=== PATIENT | female | born 1965 | race Caucasian/White ===

== ENCOUNTER 2020-01-07 09:57 | Emergency (ER) | payer BC, OTHER ==
[2020-01-07 11:22] LABS: ABSOLUTE BASOPHILS # (AUTO) 0.1 10^3/uL (0.0-0.2); ABSOLUTE MONOCYTES (AUTO) 1.1 10^3/uL (0.1-1.4); ABSOLUTE NEUT (AUTO) 13.2 10^3/uL (1.7-8.2); BASOPHILS % (AUTO) 0.6 % (0-2); HEMATOCRIT 44.4 % (36.0-47.0); HEMOGLOBIN 15.1 g/dL (12.0-15.5); LYMPHOCYTES % (AUTO) 6.6 % (13-45); MEAN CORPUSCULAR HEMOGLOBIN 29.2 pg (27.0-33.4); MEAN CORPUSCULAR HGB CONC 34.1 g/dL (32.0-36.0); MEAN CORPUSCULAR VOLUME 86 fl (80-97); MONOCYTES % (AUTO) 7.3 % (3-13); PLATELET COUNT 308 10^3/uL (150-450); RED BLOOD COUNT 5.19 10^6/uL (3.72-5.28); RED CELL DISTRIBUTION WIDTH 13.6 % (11.5-14.0); SEGMENTED NEUTROPHILS % (AUTO) 85.5 % (42-78); TOTAL CELLS COUNTED % (AUTO) 100 %; WHITE BLOOD COUNT 15.4 10^3/uL (4.0-10.5)
[2020-01-07 11:23] VITALS: BP 145/62
[2020-01-07 11:44] LABS: ANION GAP 9 (5-19); BLOOD UREA NITROGEN 14 mg/dL (7-20); CALCIUM 9.2 mg/dL (8.4-10.2); CARBON DIOXIDE 30 mmol/L (22-30); CHLORIDE 100 mmol/L (98-107); GLUCOSE 155 mg/dL (75-110); POTASSIUM 4.6 mmol/L (3.6-5.0)
[2020-01-07 11:54] LABS: A TYPE INFLUENZA AG NEGATIVE (NEGATIVE); B INFLUENZA AG NEGATIVE (NEGATIVE)
--- NOTE | 2020-01-07 12:05 | RADIOLOGY REPORT (SQ) ---
EXAM DESCRIPTION: CHEST 2 VIEWS COMPLETED DATE/TIME: 01/07/2020 11:39 am REASON FOR STUDY: cough; 18. Cough since . COMPARISON: Chest x-ray 04/28/2014 EXAM PARAMETERS: NUMBER OF VIEWS: two views TECHNIQUE: Digital Frontal and Lateral radiographic views of the chest acquired. RADIATION DOSE: NA LIMITATIONS: none FINDINGS: LUNGS AND PLEURA: Airspace opacity is noted at the left lower lobe. No pneumothorax or pl eural effusion. MEDIASTINUM AND HILAR STRUCTURES: No masses or contour abnormalities. HEART AND VASCULAR STRUCTURES: Heart normal size. No evidence for failure. BONES: No acute findings. HARDWARE: None in the chest. IMPRESSION: Airspace opacity at the left lower lobe, may be secondary to pneumonia. Radiographic fo llow-up recommended to ensure complete resolution and exclude a different etiology such as neoplasm. TECHNICAL DOCUMENTATION: JOB ID: [id number] [employer]- All Rights Reserved Reading location - IP/workstation name: [email or web address]
[2020-01-07] MEDS ORDERED: AZITHROMYCIN 250 MG TABLET PO ONE (12:12)
[2020-01-07] MEDS ORDERED: AMOXICILLIN TRIHYDRATE 500 MG CAPSULE PO ONE (12:12)
--- NOTE | 2020-01-07 12:44 | ER Document Report ---
ED General - General Chief Complaint: Alcohol Withdrawl Stated Complaint: COLD SYMPTOMS/CHEST PAIN Time Seen by Provider: 01/07/20 10:26 Primary Care Provider: ABIGAIL HAY MD [Primary Care Provider] - Follow up as needed Notes: HPI: 54-year-old female with past medical history as recorded with 4 days of runny nose, congestion, cough, chills. No vomiting or diarrhea. No calf pain or leg swelling. Patient does not smoke. No personal family history of DVT/PE. Patient denies any chest pain at rest. She has some anterior chest discomfort only with coughing. ROS: See HPI All other review of systems reviewed and otherwise negative Reviewed vital signs and nursing note as charted by RN. PHYSICAL EXAM: CONSTITUTIONAL: Alert and oriented and responds appropriately to questions. Well-appearing; well-nourished HEAD: Normocephalic; atraumatic EYES: PERRL; Conjunctivae clear, sclerae non-icteric ENT: Normal nose; bilateral nonpurulent nasal rhinorrhea; moist mucous membranes; pharynx without lesions noted NECK: Supple without meningismus; non-tender; no cervical lymphadenopathy, no masses CARD: Regular rate and rhythm; no murmurs; symmetric distal pulses RESP: Normal chest excursion without splinting or tachypnea; breath sounds clear and equal bilaterally; some rhonchi to the left lung lower base ABD/GI: Normal bowel sounds; non-distended; soft, non-tender; no palpable organomegaly or masses BACK: The back appears normal and is non-tender to palpation EXT: Normal ROM in all joints; non-tender to palpation; no edema SKIN: No acute lesions noted NEURO: CN 2-12 intact; 5/5 bilateral upper and lower extremity strength with sensation intact to light touch PSYCH: The patient's mood and manner are appropriate. Grooming and personal hygiene are appropriate. - Related Data Allergies/Adverse Reactions: prochlorperazine edisylate [From Compazine] Allergy (Verified 01/07/20 10:28) prochlorperazine maleate [From Compazine] Allergy (Verified 01/07/20 10:28) Past Medical History - Social History Smoking Status: Never Smoker Chew tobacco use (# tins/day): No Frequency of alcohol use: None Drug Abuse: None Family History: Reviewed & Not Pertinent Patient has suicidal ideation: No Patient has homicidal ideation: No Past Surgical History: Reports: Hx Hysterectomy, Hx Orthopedic Surgery Physical Exam - Vital signs Vitals: Temp Pulse Resp BP Pulse Ox 99.0 F 104 H 16 143/70 H 93 01/07/20 10:12 01/07/20 10:12 01/07/20 10:12 01/07/20 10:12 01/07/20 10:12 Course - Re-evaluation Re-evalutation: Given the history and physical examination I am concerned about the possibility of pneumonia. Given the constellation of symptoms I do believe ACS, PE, dissection to be unlikely. Vital signs as recorded. 01/07/20 12:41 Labs and x-ray as recorded. I will provide both amoxicillin and azithromycin secondary to community-acquired pneumonia. Strict return precautions have been explained. - Vital Signs Vital signs: Temp Pulse Resp BP Pulse Ox 99.0 F 104 H 21 H 145/62 H 93 01/07/20 10:12 01/07/20 10:12 01/07/20 11:12 01/07/20 11:12 01/07/20 11:12 - Laboratory Result Diagrams: 01/07/20 11:08 01/07/20 11:08 Laboratory results interpreted by me: 01/07/20 01/07/20 11:08 11:08 WBC 15.4 H Lymph % (Auto) 6.6 L Absolute Neuts (auto) 13.2 H Seg Neutrophils % 85.5 H Glucose 155 H Discharge - Discharge Clinical Impression: Bacterial pneumonia Condition: Good Disposition: HOME, SELF-CARE Additional Instructions: Come back immediately for any worsening cough, difficulty breathing, fevers or chest pain, leg swelling, or any other acute problems. Please make sure that you take antibiotics as prescribed and follow-up with the primary care physician as instructed. Prescriptions: Amoxicillin Trihydrate [Amoxil 500 mg Capsule] 1,000 mg PO BID 10 Days capsule Guaifenesin [Robitussin Syrup 200 mg/10 ml Ud Cup] 200 mg PO QIDP PRN #20 udc PRN Reason: Azithromycin [Zithromax 250 mg Tablet] 250 mg PO ASDIR PRN #6 tablet PRN Reason: Referrals: ABIGAIL HAY MD [Primary Care Provider] - Follow up as needed
--- NOTE | 2020-01-08 13:28 | EKG REPORT ---
SEVERITY:- ABNORMAL ECG - SINUS RHYTHM CONSIDER LEFT VENTRICULAR HYPERTROPHY : Confirmed by: Israel Marin MD 08-Jan-2020 13:27:40
== END 2020-01-07 13:00 | disposition home or self-care (01) ==
LOC: ER 09:57
DX: J15.9 Unspecified bacterial pneumonia (principal); R05 Cough; R68.83 Chills (without fever); J34.89 Other specified disorders of nose and nasal sinuses; Z88.8 Allergy status to other drugs, medicaments and biological substances
CPT/HCPCS: 36415; 71046; 80048; 85025; 87804; 93005; 93010; 99284